=== PATIENT | female | born 1935 | race Caucasian/White ===

== ENCOUNTER → 2016-06-21 | Outpatient (CLI) | payer MEDICARE ==
--- NOTE | 2016-06-21 16:11 | US ---
EXAMINATION TYPE: US carotid duplex BILAT DATE OF EXAM: 06/21/2016 3:52 PM COMPARISON: NONE CLINICAL HISTORY: R42 Dizziness,I10 HTN. EXAM MEASUREMENTS: RIGHT: Peak Systolic Velocity (PSV) cm/sec ----- Right CCA: 68.9 ----- Right ICA: 77.8 ----- Right ECA: 53.8 ICA/CCA ratio: 1.1 RIGHT: End Diastole cm/sec ----- Right CCA: 16.1 ----- Right ICA: 18.4 ----- Right ECA: 0 LEFT: Peak Systolic Velocity (PSV) cm/sec ----- Left CCA: 69.3 ----- Left ICA: 104.9 ----- Left ECA: 51.7 ICA/CCA ratio: 1.5 LEFT: End Diastole cm/sec ----- Left CCA: 18.6 ----- Left ICA: 30.6 ----- Left ECA: 8.7 VERTEBRALS (direction of flow): Right Vertebral: Antegrade Left Vertebral: Antegrade TECHNOLOGIST IMPRESSION: mild atherosclerotic changes bilaterally; no significant hemodynamic steno sis IMPRESSION: I DO NOT SEE EVIDENCE OF A HEMODYNAMICALLY SIGNIFICANT STENOSIS IN EITHER CAROTID SYSTEM. Criteria for Assigning % of Stenosis / Diameter reduction (Estimation based on the indirect measurements of the internal carotid artery velocities (ICA PSV). 1. Normal (no stenosis)=ICA PSV < 125 cm/s: ratio < 2.0: ICA EDV<40 cm/s. 2. Less than 50% stenosis=ICA PSV < 125 cm/s: ratio < 2.0: ICA EDV<40 cm/s. 3. 50 to 69% stenosis=ICA PSV of 125 to 230 cm/s: ration 2.0 ? 4.0: ICA EDV 40-100 cm/s. 4. Greater than 70% stenosis to near occlusion= ICA PSV > 230 cm/s: ratio > 4.0: ICA EDV > 100 cm/s. 5. Near occlusion= ICA PSV velocities may be low or undetectable: variable ratio and ICA EDV. 6. Total occlusion=unable to detect flow.
--- NOTE | 2016-06-24 14:15 | ECHOF ---
Referral Reason:R42 Dizziness,I10 HTN MEASUREMENTS -------- HEIGHT: 152.4 cm WEIGHT: 55.8 kg BP: RVIDd: 2.5 cm (< 3.3) IVSd: 0.8 cm (0.6 - 1.1) LVIDd: 4.3 cm (3.9 - 5.3) LVPWd: 0.7 cm (0.6 - 1.1) IVSs: 1.0 cm LVIDs: 2.7 cm LVPWs: 1.0 cm LA Diam: 3.2 cm (2.7 - 3.8) LAESV Index (A-L): 28.96 ml/m Ao Diam: 2.8 cm (2.0 - 3.7) AV Cusp: 1.5 cm (1.5 - 2.6) LA Diam: 4.0 cm (2.7 - 3.8) MV EXCURSION: 15.488 mm (> 18.000) MV EF SLOPE: 50 mm/s (70 - 150) EPSS: 0.4 cm MV E Karel: 0.94 m/s MV DecT: 213 ms MV A Karel: 1.09 m/s MV E/A Ratio: 0.86 RAP: 5.00 mmHg RVSP: 40.65 mmHg FINDINGS -------- Sinus rhythm. This was a technically good study. LV size, wall thickness and systolic function are normal, with an EF greater than 55%. The right ventricle is normal in size. Normal LA size by volume 22+/-6 ml/m2. The right atrial size is normal. There is mild aortic valve sclerosis. There is no evidence of aortic regurgitation. Mild mitral annular calcification present. Mild mitral regurgitation is present. Mild tricuspid regurgitation present. There is no evidence of pulmonary hypertension. The right ventricular systolic pressure, as measured by Doppler, is 40.65mmHg. There is no pulmonic regurgitation present. The aortic root size is normal. There is no pericardial effusion. CONCLUSIONS -------- 1. LV size, wall thickness and systolic function are normal, with an EF greater than 55%. 2. Normal LA size by volume 22+/-6 ml/m2. 3. There is mild aortic valve sclerosis. 4. Mild mitral annular calcification present. 5. Mild mitral regurgitation is present. 6. Mild tricuspid regurgitation present. 7. There is no evidence of pulmonary hypertension. 8. The right ventricular systolic pressure, as measured by Doppler, is 40.65mmHg. MAIL DISTRIBUTION SCHEME EXAMINER: Lisset Collins RDCS
== END | disposition home or self-care (01) ==
LOC: RADECHMAIN 15:08
PROVIDERS: ATTEND Internal Medicine
DX: R42 Dizziness and giddiness (principal); I08.3 Combined rheumatic disorders of mitral, aortic and tricuspid valves
CPT/HCPCS: 93306; 93880

== ENCOUNTER → 2016-06-28 | Outpatient (CLI) | payer MEDICARE ==
--- NOTE | 2016-06-28 16:31 | BD ---
EXAMINATION TYPE: MG DEXA axial skeleton. DATE OF EXAM: 06/28/2016 1:44 PM COMPARISON: 03.08.2014 CLINICAL HISTORY: 81-year-old female M81.0 OSTEOPOROSIS Height: 59 Weight: 125 FRAX RISK QUESTIONS: Alcohol (3 or more units per day): NO Family History (Parent hip fracture): UNKNOWN Glucocorticoids (More than 3mos): NO (Ex: prednisone, prednisolone, methylprednisolone, dexamethasone, and hydrocortisone). History of Fracture in Adulthood: YES Secondary Osteoporosis: NO 1. Type 1 Diabetes: NO 2. Hyperthyroidism: NO 3. Menopause before 45: NO 4. Malnutrition: UNKNOWN 5. Chronic liver disease: NO Rheumatoid Arthritis: NO Current Tobacco Use: NO RISK FACTORS HISTORY OF: Hip Fracture : YES BOTH HIPS WITH SURGICAL REPAIR When: >50 YRS OLD Surgery to BOTH HIPS When: >50 YRS OLD Other Fractures since Age 52: RT ANKLE When: >50 YRS Family History of Osteoporosis: UNKNOWN Smoke tobacco: NO Drink Alcohol: SOCIAL Active: USES CANE, AND WALKER, CANNOT PARTICIPATE IN EXERCISE Diet low in dairy products/other sources of calcium: NO Postmenopausal woman: HYST AT AGE 50 Take estrogen and/or progesterone medications: IN THE PAST How long: FOR A FEW YRS Lost more than 2 inches in height since high school: YES Frequent falls: UNSTEADY Poor Health: FRAIL Adrenal Insufficiency: NO MEDICATIONS: Prednisone or other steroids: NO Osteoporosis Medications: DOSEN'T THINK SO Additional Medications: BP MEDS, CALCIUM AND VIT D, CHEMO IN THE PAST, TYLENOL, Additional History: RT SIDE BREAST CA, MASTECTOMY, OSTEOARTHRITIS, EXAM MEASUREMENTS: Bone mineral densitometry was performed using the [facility]. Bone mineral density as measured about the Lumbar spine is: ----- L1-L4(G/cm2): 0.925 T Score Values are as follows: ----- L1: -1.8 ----- L2: -2.5 ----- L3: -2.3 ----- L4: -1.9 ----- L1-L4: -2.1 Bone mineral density has: Increased 1.1% since study of: 03.08.2014 BOTH HIPS WITH HX OF FRACTURES AND SURGICAL REPAIR NO FRAX %'S, COULD NOT SCAN PTS HIPS, METAL AND SCREWS IN BOTH IMPRESSION: Osteopenia as indicated by T score values within the lumbar spine. Some of the measurements borderlin e on osteoporosis. There is slightly increased risk of fracture and the patient may be considered for treatment. Re-Screen in 2-5 years. NOTE: T-SCORE=SD OF THE YOUNG ADULT MEAN.
== END | disposition home or self-care (01) ==
LOC: RADBDWWP 13:14
PROVIDERS: ATTEND Internal Medicine Rheumatology
DX: M81.0 Age-related osteoporosis without current pathological fracture (principal); M85.80 Other specified disorders of bone density and structure, unspecified site
CPT/HCPCS: 77080

== ENCOUNTER → 2016-10-01 | Outpatient (CLI) | payer MEDICARE ==
--- NOTE | 2016-10-01 12:09 | XR ---
EXAMINATION TYPE: XR chest 2V DATE OF EXAM: 10/01/2016 10:35 AM COMPARISON: 01/18/2015 HISTORY: 81-year-old female with cough TECHNIQUE: Frontal and lateral views FINDINGS: Heart is normal size. Mild elongation of the thoracic aorta. Surgical clips project on the right. Mil d diffuse interstitial prominence largely unchanged. Strandy scar at the left base. No consolidation or pleural effusion. IMPRESSION: Chronic changes, possible chronic bronchitis/asthma. No acute change seen.
== END | disposition home or self-care (01) ==
LOC: RADXRMAIN 10:20
PROVIDERS: ATTEND Internal Medicine
DX: R05 Cough (principal)
CPT/HCPCS: 71020

== ENCOUNTER 2016-10-23 19:03 | Inpatient (IN) | payer MEDICARE ==
--- NOTE | 2016-10-23 19:37 | XR ---
EXAMINATION TYPE: XR knee complete LT DATE OF EXAM: 10/23/2016 7:28 PM COMPARISON: NONE HISTORY: Knee pain TECHNIQUE: 3 views FINDINGS: There is evidence of moderate sized knee joint effusion. There is spurring on the patella. There is osteopenia. There is on the lateral view suggestion of some depression of the medial tibial plateau. IMPRESSION: Possible fracture of the medial tibial plateau. Knee joint effusion. If there is persiste nt clinical indication a CT scan would be helpful.
--- NOTE | 2016-10-23 19:45 | ED ---
General Adult HPI - General Chief complaint: Extremity Injury, Lower Stated complaint: Fall/Knee pain Time Seen by Provider: 10/23/16 19:15 Source: patient, RN notes reviewed Mode of arrival: wheelchair Limitations: no limitations - History of Present Illness Initial comments: Patient is a 81-year-old female who presents emergency room today with chief complaint of a fall that occurred approximate hour ago. She does admit that her left knee gave out and she fell down. She is unsure exactly how she twisted it. She does admit to increased swelling and pain to the left knee has had a difficult time with any ambulation since. Patient denies any other injury or trauma. She states she did take Tylenol prior to arrival. She is declined any pain medicine at this time. Patient denies any recent fever, chills , shortness of breath, chest pain, back pain, abdominal pain, nausea or vomiting , numbness or tingling, dysuria or hematuria, constipation or diarrhea, headaches or visual changes, or any other complaints. - Related Data Home Medications Medication Instructions Recorded Confirmed Acetaminophen Tab [Tylenol] 1,000 mg PO Q6H PRN 11/08/13 04/12/15 Ferrous Sulfate [Feosol] 325 mg PO BID 11/08/13 04/12/15 Losartan [Cozaar] 50 mg PO DAILY 11/08/13 04/12/15 Metoprolol Tartrate [Lopressor] 50 mg PO DAILY 11/08/13 04/12/15 Omeprazole [PriLOSEC] 20 mg PO DAILY 11/08/13 04/12/15 Calcium Carbonate/Vitamin D3 2 tab PO DAILY 07/26/14 04/12/15 [Calcium 600-Vit D3 400 Tablet] Hydroxychloroquine Sulfate 200 mg PO BID 01/18/15 04/12/15 [Plaquenil] Latanoprost Ophth [Xalatan 0.005%] 1 drop BOTH EYES HS 01/18/15 04/12/15 NIFEdipine [Procardia XL] 30 mg PO DAILY 01/18/15 04/12/15 Cyclobenzaprine [Flexeril] 5 mg PO DAILY PRN 04/12/15 04/12/15 Previous Rx's Medication Instructions Recorded HYDROcodone/APAP 5-325MG [Smoot 1 each PO Q4HR PRN #60 tab 01/22/15 5-325] Allergies Allergy/AdvReac Type Severity Reaction Status Date / Time codeine Allergy Nausea & Verified 10/23/16 19:10 Vomiting Review of Systems ROS Statement: Those systems with pertinent positive or pertinent negative responses have been documented in the HPI. ROS Other: All systems not noted in ROS Statement are negative. Past Medical History Past Medical History: Cancer, GERD/Reflux, Hypertension, Pneumonia Additional Past Medical History / Comment(s): glaucoma,heart murmur,polyps, iron deficient anemia, breast cancer 2012 History of Any Multi-Drug Resistant Organisms: None Reported Past Surgical History: Breast Surgery, Hysterectomy Additional Past Surgical History / Comment(s): cataracts, rt masectomy, left hip surgery. Past Anesthesia/Blood Transfusion Reactions: No Reported Reaction Additional Past Anesthesia/Blood Transfusion Reaction / Comment(s): 08-31-2013 Past Psychological History: No Psychological Hx Reported Smoking Status: Former smoker Past Alcohol Use History: None Reported Past Drug Use History: None Reported Additional Drug Use History / Comment(s): Currently lives at home alone. Her is in rehab at this time. General Exam - General Exam Comments Initial Comments: General: The patient is awake and alert, in no distress, and does not appear acutely ill. Eye: Pupils are equal, round and reactive to light, extra-ocular movements are intact. No nystagmus. There is normal conjunctiva bilaterally. No signs of icterus. Ears, nose, mouth and throat: There are moist mucous membranes and no oral lesions. Neck: The neck is supple, there is no tenderness or JVD. Cardiovascular: There is a regular rate and rhythm. No murmur, rub or gallop is appreciated. Respiratory: Lungs are clear to auscultation, respirations are non-labored, breath sounds are equal. No wheezes, stridor, rales, or rhonchi. Musculoskeletal: does have some moderate swelling to the left knee. She does show good range of motion both flexion and extension. She does have tenderness over the anterior aspect of the left knee. Mild tenderness popliteal. Strength 4/5 due to pain. No bony tenderness to the left hip or down into the left ankle. Strength 5/5. Sensation intact. Pulses equal bilaterally 2+. Neurological: A&O x 3. CN II-XII intact, There are no obvious motor or sensory deficits. Coordination appears grossly intact. Speech is normal. Skin: Skin is warm and dry and no rashes or lesions are noted. Psychiatric: Cooperative, appropriate mood & affect, normal judgment. Limitations: no limitations Course Vital Signs 10/23/16 19:08 Temperature 97.9 F Pulse Rate 76 Respiratory 20 Rate Blood Pressure 156/67 O2 Sat by Pulse 95 Oximetry - Reevaluation(s) Reevaluation #1: 10/23/16 19:40 patient's x-ray reviewed and does show possible tibial plateau fracture. CT of the left knee will be obtained for further information. Again patient asked if she needed pain medication at this time she again has declined states she did take Tylenol prior to arrival. Medical Decision Making - Medical Decision Making Patient's CT reviewed and does show tibial plateau fracture. Results were discussed with orthopedic Dr. Garcia who will admit the patient. Disposition Clinical Impression: Tibial plateau fracture, left Disposition: ADMITTED IP TO THIS HOSP Condition: Stable Referrals: Jace Stafford MD [Primary Care Provider] - 1-2 days Time of Disposition: 20:40
--- NOTE | 2016-10-23 20:07 | CT ---
EXAMINATION TYPE: CT knee LT wo con DATE OF EXAM: 10/23/2016 7:58 PM COMPARISON: NONE HISTORY: Fall today, left knee injury. CT DLP: 429.50 mGycm Automated exposure control for dose reduction was used. FINDINGS: There is a 1.5 x 1.5 cm fracture of the central portion of the medial tibial plateau. There is depres britni of the fragment 5 mm. There is knee joint effusion. There is osteopenia. The distal femur is int act. Proximal fibula is intact. IMPRESSION: KNEE JOINT EFFUSION. MILDLY DEPRESSED INTRA-ARTICULAR FRACTURE OF THE MEDIAL TIBIAL PLATEAU.
[2016-10-23] MEDS ORDERED: SODIUM CHLORIDE 0.9% 1,000 ML IV STA (20:44)
[2016-10-23] MEDS ORDERED: SODIUM CHLORIDE 0.9% 1,000 ML IV ONE (20:51)
[2016-10-23] MEDS ORDERED: ACETAMINOPHEN TAB 325 MG TAB PO PRN (20:51)
[2016-10-23] MEDS ORDERED: ONDANSETRON 4 MG/2 ML VIAL IVP PRN (20:51)
[2016-10-23] MEDS ORDERED: NALOXONE 0.4 MG/ML 1 ML VIAL IV PRN (20:51)
[2016-10-23] MEDS ORDERED: MORPHINE SULFATE 4 MG/ML SYRINGE IV PRN (20:51)
[2016-10-23 21:44] LABS: Basophils % (A) 0 %; CH 29.4; CHCM 33.1; Eosinophils # (A) 0.1 k/uL (0-0.7); Eosinophils % (A) 1 %; HCT 33.5 % (34.0-46.0); HDW 2.25; HGB 11.1 gm/dL (11.4-16.0); Luc % (Auto) 1; Lymphocytes # (A) 0.9 k/uL (1.0-4.8); Lymphocytes % (A) 12 %; MCH 29.7 pg (25.0-35.0); MCHC 33.2 g/dL (31.0-37.0); MCV 89.3 fL (80.0-100.0); Mean Platelet Volume 7.7; Monocytes # (A) 0.3 k/uL (0-1.0); Monocytes % (A) 4 %; Neutrophils # (A) 6.6 k/uL (1.3-7.7); Neutrophils % (A) 82 %; RBC 3.74 m/uL (3.80-5.40); RDW 13.4 % (11.5-15.5); WBC 8.1 k/uL (3.8-10.6); WBC (Perox) 8.35
[2016-10-23 21:55] LABS: ALT 24 U/L (9-52); AST 27 U/L (14-36); Alkaline Phosphatase 111 U/L (38-126); Anion Gap 12 mmol/L; Blood Urea Nitrogen 18 mg/dL (7-17); Calcium 9.6 mg/dL (8.4-10.2); Carbon Dioxide 22 mmol/L (22-30); Chloride 104 mmol/L (98-107); Glucose 104 mg/dL (74-99); Non-African American GFR(MDRD) 55 (>60 ml/min/1.73 sqM); Potassium 3.9 mmol/L (3.5-5.1); Sodium 138 mmol/L (137-145); Total Bilirubin 0.5 mg/dL (0.2-1.3); Total Protein 7.5 g/dL (6.3-8.2)
[2016-10-23 21:58] LABS: Partial Thromboplastin Time 24.9 sec (22.0-30.0); Prothrombin Time 10.5 sec (9.0-12.0)
[2016-10-24] MEDS: HYDROcodone/APAP 5-325MG 1 EACH TAB PO PRN ×3 (08:59→21:36)
--- NOTE | 2016-10-24 09:26 | P.HPOR ---
History of Present Illness H&P Date: 10/24/16 Chief Complaint: Left tibial plateau fracture This is a 81-year-old female admitted to [facility] on 2016 after falling and sustaining injury to her left knee. She states that she' s been having left knee pain for the past several days. When she got up yesterday the knee gave out on her causing her to fall. She was admitted to [facility] for pain management and further evaluation of the left knee. Past Medical History Past Medical History: Cancer, GERD/Reflux, Hypertension, Pneumonia Additional Past Medical History / Comment(s): osteoporosis; glaucoma,heart murmur,polyps, iron deficient anemia, breast cancer 2012 History of Any Multi-Drug Resistant Organisms: None Reported Past Surgical History: Breast Surgery, Hysterectomy Additional Past Surgical History / Comment(s): cataracts, rt masectomy, left hip surgery, right hip surgery Past Anesthesia/Blood Transfusion Reactions: No Reported Reaction Additional Past Anesthesia/Blood Transfusion Reaction / Comment(s): 08-31-2013 Past Psychological History: No Psychological Hx Reported Smoking Status: Former smoker Past Alcohol Use History: None Reported Past Drug Use History: None Reported Additional Drug Use History / Comment(s): Currently lives at home alone. Her is in rehab at this time. - Past Family History Father Family Medical History: Myocardial Infarction ([place]) Mother Family Medical History: Blood Disorder, Cancer Additional Family Medical History / Comment(s): of leukemia at 50 Medications and Allergies Home Medications Medication Instructions Recorded Confirmed Type Acetaminophen Tab [Tylenol] 1,000 mg PO Q6H PRN 11/08/13 10/23/16 History Ferrous Sulfate [Feosol] 325 mg PO DAILY 11/08/13 10/23/16 History Losartan [Cozaar] 50 mg PO DAILY 11/08/13 10/23/16 History Metoprolol Tartrate [Lopressor] 50 mg PO DAILY 11/08/13 10/23/16 History Omeprazole [PriLOSEC] 20 mg PO DAILY 11/08/13 10/23/16 History Hydroxychloroquine Sulfate 200 mg PO BID 01/18/15 10/23/16 History [Plaquenil] Latanoprost Ophth [Xalatan 0.005%] 1 drop BOTH EYES HS 01/18/15 10/23/16 History NIFEdipine [Procardia XL] 30 mg PO DAILY 01/18/15 10/23/16 History Ergocalciferol [Vitamin D2] 50,000 unit PO PRIDE 10/23/16 10/23/16 History Allergies Allergy/AdvReac Type Severity Reaction Status Date / Time codeine Allergy Nausea & Verified 10/23/16 22:30 Vomiting Physical Examination This is a pleasant 81-year-old female in no acute distress. She is alert and oriented 3. Exam of the head neck reveal no deformities. She has full cervical spine motion without difficulty or pain. There is no pain to palpation about cervical spine or paraspinal musculature. Exam the upper extremities reveals no obvious deformities. There is mild pain about the left wrist with palpation. There is no obvious swelling noted. She has full shoulder, elbow, wrist and finger motion without difficulty or pain. Neurovascular status the upper extremities is intact. Exam the lower extremities reveals mild swelling to the left knee. He is no erythema or ecchymosis. There is pain with palpation about the medial and lateral joint line. She has full foot and ankle motion without difficulty or pain. Neurovascular status to the lower extremities intact. Results X-rays and computed tomography scan of the left knee reveal a medial tibial plateau fracture with mild depression and minimal displacement. No other fractures identified. - Labs Labs: Abnormal Lab Results - Last 24 Hours (Table) 10/23/16 10/23/16 Range/Units 21:32 21:32 RBC 3.74 L (3.80-5.40) m/uL Hgb 11.1 L (11.4-16.0) gm/dL Hct 33.5 L (34.0-46.0) % Plt Count 143 L (150-450) k/uL Lymphocytes # 0.9 L (1.0-4.8) k/uL BUN 18 H (7-17) mg/dL Glucose 104 H (74-99) mg/dL H & H 10/23/16 Range/Units 21:32 Hgb 11.1 L (11.4-16.0) gm/dL Hct 33.5 L (34.0-46.0) % Coagulation 10/23/16 Range/Units 21:32 INR 1.0 (<1.1) Result Diagrams: 10/23/16 21:32 10/23/16 21:32 Assessment and Plan (1) Tibial plateau fracture, left Status: Acute (2) Fall Status: Acute Plan: The clinical and x-ray findings are discussed the patient. It is recommended that her fracture be treated nonoperatively. She will remain in the knee immobilizer. She is nonweightbearing to the left lower extremity with walker. We will see how she does with physical therapy and make rehab recommendations at that time.
[2016-10-24] MEDS: HYDROXYCHLOROQUINE SULFATE 200 MG TAB PO SCH ×2 (10:57→20:09)
[2016-10-24] MEDS: LOSARTAN 50 MG TAB PO SCH (10:57)
[2016-10-24] MEDS: PANTOPRAZOLE 40 MG TABLET PO SCH (10:57)
[2016-10-24] MEDS: NIFEdipine XL 30 MG TAB.ER.24 PO SCH (10:57)
[2016-10-24] MEDS: METOPROLOL TARTRATE 50 MG TAB PO SCH (10:57)
[2016-10-24] MEDS: FERROUS SULFATE 325 MG TAB PO SCH (10:58)
--- NOTE | 2016-10-24 15:08 | P.CONS ---
History of Present Illness - Reason for Consult Consult date: 10/24/16 Medical management Requesting physician: Colt Garcia - Chief Complaint Left tibial plateau fracture - History of Present Illness This is a 81-year-old female with a known past medical history of hypertension, breast cancer, iron deficiency anemia and Raynauds. She presents to the emergency room after a fall and pain in the left knee. Patient reports that she felt the left knee twist and she was having difficulty ambulating sets. She was brought into the emergency room for further evaluation. And she had a computed tomography scan of the knee revealing a left knee joint effusion. Mildly depressed intra-articular fracture of the medial tibial plateau. Patient denies any chest pain, shortness of breath, nausea or vomiting. Denies any bowel movement changes or urinary symptoms. Denies any fever chills or sweats. We were consulted for medical management. Review of Systems Please refer to HPI otherwise unremarkable Past Medical History Past Medical History: Cancer, GERD/Reflux, Hypertension, Pneumonia Additional Past Medical History / Comment(s): osteoporosis; glaucoma,heart murmur,polyps, iron deficient anemia, breast cancer 2012 History of Any Multi-Drug Resistant Organisms: None Reported Past Surgical History: Breast Surgery, Hysterectomy Additional Past Surgical History / Comment(s): cataracts, rt masectomy, left hip surgery, right hip surgery Past Anesthesia/Blood Transfusion Reactions: No Reported Reaction Additional Past Anesthesia/Blood Transfusion Reaction / Comm: 08-31-2013 Past Psychological History: No Psychological Hx Reported Smoking Status: Former smoker Past Alcohol Use History: None Reported Past Drug Use History: None Reported Additional Drug Use History / Comment(s): Currently lives at home alone. Her is in rehab at this time. - Past Family History Father Family Medical History: Myocardial Infarction ([place]) Mother Family Medical History: Blood Disorder, Cancer Additional Family Medical History / Comment(s): of leukemia at 50 Medications and Allergies Home Medications Medication Instructions Recorded Confirmed Type Acetaminophen Tab [Tylenol] 1,000 mg PO Q6H PRN 11/08/13 10/23/16 History Ferrous Sulfate [Feosol] 325 mg PO DAILY 11/08/13 10/23/16 History Losartan [Cozaar] 50 mg PO DAILY 11/08/13 10/23/16 History Metoprolol Tartrate [Lopressor] 50 mg PO DAILY 11/08/13 10/23/16 History Omeprazole [PriLOSEC] 20 mg PO DAILY 11/08/13 10/23/16 History Hydroxychloroquine Sulfate 200 mg PO BID 01/18/15 10/23/16 History [Plaquenil] Latanoprost Ophth [Xalatan 0.005%] 1 drop BOTH EYES HS 01/18/15 10/23/16 History NIFEdipine [Procardia XL] 30 mg PO DAILY 01/18/15 10/23/16 History Ergocalciferol [Vitamin D2] 50,000 unit PO PRIDE 10/23/16 10/23/16 History Allergies Allergy/AdvReac Type Severity Reaction Status Date / Time codeine Allergy Nausea & Verified 10/23/16 22:30 Vomiting Physical Exam Vitals: Vital Signs Temp Pulse Pulse Resp BP BP Pulse Ox 10/24/16 08:00 86 16 10/24/16 07:00 98.6 F 86 16 141/66 96 10/23/16 23:15 86 18 120/62 96 10/23/16 19:08 97.9 F 76 20 156/67 95 Intake and Output 10/24/16 10/24/16 10/24/16 06:59 14:59 22:59 Intake Total 100 Output Total 900 Balance -800 Intake: Amount of Fluid Infused ( 100 ml) Oral 0 Output: Urine 900 Other: Voiding Method Bedpan Bedpan # Voids 1 1 # Bowel Movements 0 Head normocephalic Neck supple Lungs clear to auscultation bilaterally no wheezing or crackles Heart regular rate and rhythm S1-S2, no rub or gallop Abdomen is soft nontender nondistended positive bowel sounds no hepatosplenomegaly Extremities no edema. Left leg in brace Neuro alert and orientated to 3 Results CBC & Chem 7: 10/23/16 21:32 10/23/16 21:32 Labs: Abnormal Lab Results - Last 24 Hours (Table) 10/23/16 10/23/16 Range/Units 21:32 21:32 RBC 3.74 L (3.80-5.40) m/uL Hgb 11.1 L (11.4-16.0) gm/dL Hct 33.5 L (34.0-46.0) % Plt Count 143 L (150-450) k/uL Lymphocytes # 0.9 L (1.0-4.8) k/uL BUN 18 H (7-17) mg/dL Glucose 104 H (74-99) mg/dL Assessment and Plan Plan: 1. Fall with left tibial plateau fracture: Admitted to orthopedic service. No surgical intervention at this time. The recommending leg brace and physical therapy. Continue with current pain management. Social work consulted for ECF placement 2. Essential hypertension: resume the losartan, metoprolol and Procardia 3. Iron deficiency anemia: Resume ferrous sulfate 4. GERD: Resume Protonix 5. History of breast cancer status post mastectomy and chemotherapy in 2012 6. Reynaud syndrome: continue plaquenil GI prophylaxis Protonix and DVT prophylaxis subcu heparin Thank you for this consultation. We will continue to follow along with you. Time with Patient: Greater than 30 (Greater than 50% of the total time spent in counseling and coordination of care. I performed an examination of the patient and discussed their management with the physician Sling Operator. I have reviewed the Physician Sling Operator's notes and agree with the documented findings and plan of care)
[2016-10-24] MEDS: HEPARIN SODIUM,PORCINE 5,000 UNIT/ML 1 ML VIAL SQ SCH (20:09)
[2016-10-24] MEDS ORDERED: LATANOPROST 0.005% OPHTH DROPS 2.5 ML BTL BOTH EYES SCH (21:00)
[2016-10-25 07:47] VITALS: RESP 16
--- NOTE | 2016-10-25 08:22 | P.PN ---
Subjective Principal diagnosis: Left tibial plateau fracture The patient is a pleasant 81-year-old female who was admitted to the hospital after falling and sustaining an injury to her left knee. She was found to have a minimally displaced and depressed tibial plateau fracture. She was seen and evaluated yesterday and was placed in a knee immobilizer and instructed on nonweightbearing. She was up with physical therapy yesterday and sat in the chair. We are awaiting rehab placement. She has no new complaints this morning. Objective - Vital Signs Vital signs: Vital Signs Temp 98.2 F 10/25/16 07:00 Pulse 94 10/25/16 07:00 Resp 16 10/25/16 07:00 BP 121/56 10/25/16 07:00 Pulse Ox 96 10/25/16 07:00 Intake & Output 10/24/16 10/25/16 10/25/16 18:59 06:59 18:59 Other: Voiding Method Bedpan # Voids 1 1 # Bowel Movements 1 - Exam The patient is in no acute distress. She is alert and oriented 3. Exam of the left lower extremity reveals mild swelling to the knee. Pain upon palpation to the medial joint line. She has full foot and ankle motion. Calf is mildly tender without redness or swelling noted. Neurological and circulatory status is intact. - Labs CBC & Chem 7: 10/23/16 21:32 10/23/16 21:32 Assessment and Plan (1) Fall Status: Acute (2) Tibial plateau fracture, left Status: Acute Plan: The clinical findings were discussed with the patient. She will continue physical therapy. Continue pain control. Continue knee immobilizer and nonweightbearing to the left lower extremity. The patient may be discharged to skilled rehab when medically stable and bed is available. The patient will follow-up with Dr. Garcia on an outpatient basis.
[2016-10-25 08:27] LABS: Basophils % (A) 1 %; CH 29.3; CHCM 32.8; Eosinophils # (A) 0.2 k/uL (0-0.7); Eosinophils % (A) 4 %; HCT 31.8 % (34.0-46.0); HDW 2.19; HGB 10.7 gm/dL (11.4-16.0); Luc % (Auto) 2; Lymphocytes # (A) 1.2 k/uL (1.0-4.8); Lymphocytes % (A) 21 %; MCH 30.1 pg (25.0-35.0); MCHC 33.5 g/dL (31.0-37.0); MCV 89.6 fL (80.0-100.0); Mean Platelet Volume 8.1; Monocytes # (A) 0.3 k/uL (0-1.0); Monocytes % (A) 6 %; Neutrophils # (A) 3.7 k/uL (1.3-7.7); Neutrophils % (A) 67 %; RBC 3.54 m/uL (3.80-5.40); RDW 13.3 % (11.5-15.5); WBC 5.5 k/uL (3.8-10.6); WBC (Perox) 6.07
[2016-10-25] MEDS: HYDROcodone/APAP 5-325MG 1 EACH TAB PO PRN ×2 (08:28→15:43)
[2016-10-25] MEDS: PANTOPRAZOLE 40 MG TABLET PO SCH (08:29)
[2016-10-25] MEDS: METOPROLOL TARTRATE 50 MG TAB PO SCH (08:29)
[2016-10-25] MEDS: LOSARTAN 50 MG TAB PO SCH (08:29)
[2016-10-25] MEDS: FERROUS SULFATE 325 MG TAB PO SCH (08:29)
[2016-10-25] MEDS: HEPARIN SODIUM,PORCINE 5,000 UNIT/ML 1 ML VIAL SQ SCH (08:29)
[2016-10-25] MEDS: HYDROXYCHLOROQUINE SULFATE 200 MG TAB PO SCH (08:29)
[2016-10-25] MEDS: NIFEdipine XL 30 MG TAB.ER.24 PO SCH (08:29)
[2016-10-25 08:36] LABS: ALT 20 U/L (9-52); AST 23 U/L (14-36); Alkaline Phosphatase 93 U/L (38-126); Anion Gap 14 mmol/L; Blood Urea Nitrogen 17 mg/dL (7-17); Calcium 9.2 mg/dL (8.4-10.2); Carbon Dioxide 18 mmol/L (22-30); Chloride 105 mmol/L (98-107); Glucose 78 mg/dL (74-99); Non-African American GFR(MDRD) 57 (>60 ml/min/1.73 sqM); Sodium 137 mmol/L (137-145); Total Bilirubin 0.8 mg/dL (0.2-1.3); Total Protein 6.7 g/dL (6.3-8.2)
--- NOTE | 2016-10-25 12:33 | P.PN ---
Subjective Patient presented after a fall with evidence of a left medial tibial plateau fracture. Evaluated by orthopedics the recommending a knee immobilizer brace. She is nonweightbearing. She is awaiting ECF placement. Patient's pain is controlled. She denies any chest pain shortness of breath. Last bowel movement 2 days ago. Denies a nausea vomiting. Denies any burning with urination. Objective - Vital Signs Vital signs: Vital Signs Temp 98.2 F 10/25/16 07:00 Pulse 94 10/25/16 08:00 Resp 16 10/25/16 08:00 BP 121/56 10/25/16 07:00 Pulse Ox 96 10/25/16 07:00 Intake & Output 10/24/16 10/25/16 10/25/16 18:59 06:59 18:59 Other: Voiding Method Bedpan Bedpan # Voids 1 1 1 # Bowel Movements 1 - Exam Head normocephalic Neck supple Lungs clear to auscultation bilaterally no wheezing or crackles Heart regular rate and rhythm S1-S2, no rub or gallop Abdomen is soft nontender nondistended positive bowel sounds no hepatosplenomegaly Extremities no edema. Left leg and knee immobilizer Neuro alert and orientated to 3 - Labs CBC & Chem 7: 10/25/16 07:19 10/25/16 07:19 Labs: Abnormal Lab Results - Last 24 Hours (Table) 10/25/16 10/25/16 Range/Units 07:19 07:19 RBC 3.54 L (3.80-5.40) m/uL Hgb 10.7 L (11.4-16.0) gm/dL Hct 31.8 L (34.0-46.0) % Plt Count 135 L (150-450) k/uL Carbon Dioxide 18 L (22-30) mmol/L Assessment and Plan Plan: 1. Fall with left tibial plateau fracture: Admitted to orthopedic service. No surgical intervention at this time. The recommending leg brace and physical therapy. Continue with current pain management. Social work consulted for ECF placement 2. Essential hypertension: resume the losartan, metoprolol and Procardia 3. Iron deficiency anemia: Resume ferrous sulfate 4. GERD: Resume Protonix 5. History of breast cancer status post mastectomy and chemotherapy in 2012 6. Reynaud syndrome: continue plaquenil GI prophylaxis Protonix and DVT prophylaxis subcu heparin Patient is medically stable to be transferred to ECF when bed available. Med rec will be completed. I performed an examination of the patient and discussed their management with the physician Cook Pickled Meat. I have reviewed the Physician Cook Pickled Meat's notes and agree with the documented findings and plan of care
--- NOTE | 2016-10-25 14:04 | P.DS ---
Providers Date of admission: 10/23/16 21:40 Expected date of discharge: 10/25/16 Attending physician: Colt Garcia Consults: 10/23/16 20:51 Consult Physician Stat Consulting Provider: Jace Stafford Consult Reason/Comments: medical clearance Do you want consulting provider notified?: Yes Primary care physician: Jace Stafford - Discharge Diagnosis(es) (1) Fall Current Visit: No Status: Acute (2) Tibial plateau fracture, left Current Visit: Yes Status: Acute Hospital Course: The patient is a pleasant 81-year-old female who who was admitted to [facility] after falling and sustaining an injury to her left knee. She was found to have a minimally displaced and discussed tibial plateau fracture. No surgical intervention was planned and she was placed in a knee immobilizer and nstructed on weightbearing. She was up with physical therapy yesterday and sat in the chair. She has no new complaints on the day of discharge. On exam she is in no acute distress. She is alert and oriented 3. Exam of the left lower extremity reveals mild swelling to the knee. Pain upon palpation to the medial joint line. She has full foot and ankle motion. Calf is mildly tender without redness or swelling noted. Neurological and circulatory status is intact. The patient is orthopedically stable for discharge to skilled rehab today. See medication reconciliation for accurate list of discharge medications. Pertinent Studies: Laboratory Tests 10/25/16 07:19 WBC 5.5 RBC 3.54 L Hgb 10.7 L Hct 31.8 L Patient Condition at Discharge: Stable Plan - Discharge Summary New Discharge Prescriptions: HYDROcodone/APAP 5-325MG [Sarver 5] 1 - 2 each PO Q4-6H PRN #60 tab PRN Reason: Pain Discharge Medication List Acetaminophen Tab [Tylenol] 1,000 mg PO Q6H PRN 11/08/13 [History] Ferrous Sulfate [Feosol] 325 mg PO DAILY 11/08/13 [History] Losartan [Cozaar] 50 mg PO DAILY 11/08/13 [History] Metoprolol Tartrate [Lopressor] 50 mg PO DAILY 11/08/13 [History] Omeprazole [PriLOSEC] 20 mg PO DAILY 11/08/13 [History] Hydroxychloroquine Sulfate [Plaquenil] 200 mg PO BID 01/18/15 [History] Latanoprost Ophth [Xalatan 0.005%] 1 drop BOTH EYES HS 01/18/15 [History] NIFEdipine [Procardia XL] 30 mg PO DAILY 01/18/15 [History] Ergocalciferol [Vitamin D2 (DRISDOL)] 50,000 unit PO PRIDE 10/23/16 [History] HYDROcodone/APAP 5-325MG [Sarver 5] 1 - 2 each PO Q4-6H PRN #60 tab 10/25/16 [Rx] Follow up Appointment(s)/Referral(s): Jace Stafford MD [Primary Care Provider] - 1-2 days Colt Garcia MD [STAFF PHYSICIAN] - 2 Weeks Activity/Diet/Wound Care/Special Instructions: Non-weightbearing left leg Keep immobilizer in place Follow up with Dr. Garcia in 2 weeks. Call [facility] with any questions or concerns, . Discharge Disposition: TRANSFER TO SNF/ECF
[2016-10-25 15:03] VITALS: BP 141/76; PULSE 70; TEMP 98.7
== END 2016-10-25 16:17 | DRG 563 ==
LOC: EC 19:03 → 4MS4W 21:40
PROVIDERS: ADMIT Orthopaedic Surgery; ATTEND Orthopaedic Surgery
DX: S82.142A Displaced bicondylar fracture of left tibia, initial encounter for closed fracture (principal); I10 Essential (primary) hypertension; H40.9 Unspecified glaucoma; I73.00 Raynaud's syndrome without gangrene; K21.9 Gastro-esophageal reflux disease without esophagitis; M81.0 Age-related osteoporosis without current pathological fracture; Z79.899 Other long term (current) drug therapy; Z80.6 Family history of leukemia; Z82.49 Family history of ischemic heart disease and other diseases of the circulatory system; Z85.3 Personal history of malignant neoplasm of breast; Z87.891 Personal history of nicotine dependence
CPT/HCPCS: 36415; 80053; 85025; 85610; 85730; 93005

== ENCOUNTER 2018-05-29 11:49 | Emergency (ER) | payer MEDICARE ==
[2018-05-29] MEDS ORDERED: CYCLOBENZAPRINE 5 MG TAB PO STA (12:34)
--- NOTE | 2018-05-29 13:38 | ED ---
Back Pain HPI - General Chief Complaint: Back Pain/Injury Stated Complaint: Back pain Time Seen by Provider: 05/29/18 12:18 Source: patient Limitations: no limitations - History of Present Illness Initial Comments: 83-year-old female patient presents to the emergency department today for evaluation of low back pain with radiation down the left leg. Patient states that she woke up one morning a week ago with the pain. Patient states that the pain is across her entire low back. States the pain radiates down the left lateral leg down to her foot. States that the pain is sharp and shooting. States that her left leg does feel numb. She denies any loss of bowel or bladder control or saddle anesthesia. Denies any fevers or chills. Patient states she does have a history of osteoporosis. She has had bilateral hip fractures. She denies any recent injury or fall. Patient denies any recent rash , shortness breath, chest pain, abdominal pain, nausea, vomiting, diarrhea, constipation, dizziness, weakness, hematuria, dysuria, urinary urgency, urinary frequency, headache, visual changes, or any other complaints. MD Complaint: back pain - Related Data Home Medications Medication Instructions Recorded Confirmed Ferrous Sulfate [Feosol] 325 mg PO DAILY 11/08/13 05/29/18 Losartan [Cozaar] 50 mg PO DAILY 11/08/13 05/29/18 Omeprazole [PriLOSEC] 20 mg PO BID 11/08/13 05/29/18 Hydroxychloroquine Sulfate 200 mg PO BID 01/18/15 05/29/18 [Plaquenil] Latanoprost Ophth [Xalatan 0.005%] 1 drop BOTH EYES HS 01/18/15 05/29/18 NIFEdipine [Procardia XL] 30 mg PO DAILY 01/18/15 05/29/18 Ergocalciferol [Vitamin D2 50,000 unit PO PRIDE 10/23/16 05/29/18 (DRISDOL)] Calcium Carbonate/Vitamin D3 1 tab PO DAILY 05/29/18 05/29/18 [Calcium 500-Vit D3 200 Tablet] Metoprolol Succinate (ER) [Toprol 50 mg PO DAILY 05/29/18 05/29/18 Xl] Teriparatide [Forteo] 20 mcg SQ DAILY 05/29/18 05/29/18 predniSONE 10 mg PO DAILY 05/29/18 05/29/18 Allergies Allergy/AdvReac Type Severity Reaction Status Date / Time codeine Allergy Nausea & Verified 05/29/18 12:29 Vomiting Review of Systems ROS Statement: Those systems with pertinent positive or pertinent negative responses have been documented in the HPI. ROS Other: All systems not noted in ROS Statement are negative. Past Medical History Past Medical History: Cancer, GERD/Reflux, Hypertension, Pneumonia Additional Past Medical History / Comment(s): osteoporosis; glaucoma,heart murmur,polyps, iron deficient anemia, breast cancer 2012 History of Any Multi-Drug Resistant Organisms: None Reported Past Surgical History: Breast Surgery, Hysterectomy Additional Past Surgical History / Comment(s): cataracts, rt masectomy, left hip surgery, right hip surgery Past Anesthesia/Blood Transfusion Reactions: No Reported Reaction Additional Past Anesthesia/Blood Transfusion Reaction / Comment(s): 08-31-2013 Past Psychological History: No Psychological Hx Reported Smoking Status: Former smoker Past Alcohol Use History: Rare Past Drug Use History: None Reported - Past Family History Father Family Medical History: Myocardial Infarction ([place]) Mother Family Medical History: Blood Disorder, Cancer Additional Family Medical History / Comment(s): of leukemia at 50 General Exam Limitations: no limitations General appearance: alert, in no apparent distress, other (This is a well- developed, well-nourished elderly female patient in no acute distress. Vital signs upon presentation are temperature 97.6F, pulse 88, respirations 20, blood pressure 133/65, pulse ox 97% on room air.) Eye exam: Present: normal appearance, PERRL, EOMI. Absent: scleral icterus, conjunctival injection, periorbital swelling ENT exam: Present: normal exam, mucous membranes moist Neck exam: Present: normal inspection. Absent: tenderness, meningismus, lymphadenopathy Respiratory exam: Present: normal lung sounds bilaterally. Absent: respiratory distress, wheezes, rales, rhonchi, stridor Cardiovascular Exam: Present: regular rate, normal rhythm, normal heart sounds. Absent: systolic murmur, diastolic murmur, rubs, gallop, clicks GI/Abdominal exam: Present: soft, normal bowel sounds. Absent: distended, tenderness, guarding, rebound, rigid Back exam: Present: normal inspection, tenderness (Bilateral lower back tenderness). Absent: vertebral tenderness Neurological exam: Present: alert, oriented X3, CN II-XII intact Psychiatric exam: Present: normal affect, normal mood Skin exam: Present: warm, dry, intact, normal color. Absent: rash Course Vital Signs 05/29/18 05/29/18 11:53 15:27 Temperature 97.6 F 98.0 F Pulse Rate 88 80 Respiratory 20 16 Rate Blood Pressure 133/65 138/71 O2 Sat by Pulse 97 98 Oximetry Medical Decision Making - Medical Decision Making 83-year-old female patient with past medical history significant for breast cancer in remission presents to the emergency department today for evaluation of nontraumatic low back pain with radicular type pain down the left leg. Physical examination did reveal some weakness to the left leg, tenderness over the left and right lower back. Patient good sensation and good distal pulses to the extremities. CT was obtained and did reveal a pathologic fracture at L5 vertebrae with bony destruction and multiple soft tissue masses involving the paraspinal space around 6 vertebra, masses extending into the left sacroiliac joint as well. I did discuss findings and results with the patient and her family. We currently have no coverage for spine or for neurosurgery. Given her symptoms and possibility of nerve root compression and involvement we will transfer to [facility] for further evaluation by neurosurgery and oncology. Patient's family are agreeable with this plan. - Lab Data Result diagrams: 05/29/18 15:51 Lab Results 05/29/18 05/29/18 Range/Units 13:58 15:51 WBC 9.9 (3.8-10.6) k/uL RBC 3.91 (3.80-5.40) m/uL Hgb 11.7 (11.4-16.0) gm/dL Hct 35.6 (34.0-46.0) % MCV 91.0 (80.0-100.0) fL MCH 29.9 (25.0-35.0) pg MCHC 32.8 (31.0-37.0) g/dL RDW 13.9 (11.5-15.5) % Plt Count 183 (150-450) k/uL Neutrophils % 91 % Lymphocytes % 6 % Monocytes % 1 % Eosinophils % 2 % Basophils % 0 % Neutrophils # 9.0 H (1.3-7.7) k/uL Lymphocytes # 0.6 L (1.0-4.8) k/uL Monocytes # 0.1 (0-1.0) k/uL Eosinophils # 0.2 (0-0.7) k/uL Basophils # 0.0 (0-0.2) k/uL Urine Color Light Yellow Urine Appearance Clear (Clear) Urine pH 5.5 (5.0-8.0) Ur Specific [place] 1.007 (1.001-1.035) Urine Protein Negative (Negative) Urine Glucose (UA) Negative (Negative) Urine Ketones Negative (Negative) Urine Blood Trace H (Negative) Urine Nitrite Negative (Negative) Urine Bilirubin Negative (Negative) Urine Urobilinogen <2.0 (<2.0) mg/dL Ur Leukocyte Esterase Trace H (Negative) Urine RBC 3 (0-5) /hpf Urine WBC 2 (0-5) /hpf Ur Squamous Epith Cells <1 (0-4) /hpf Urine Mucus Rare H (None) /hpf - Radiology Data Radiology results: report reviewed, image reviewed CT lumbar spine was obtained. Report was reviewed in its entirety. Impression by Dr. Livingston shows new pathologic fracture about 6 vertebra. There are destructive soft tissue masses involving the right and left aspect about 6 vertebra large on the left with additional destructive soft tissue mass involving the upper sacrum extending into the left sacroiliac joint. Ossific metastatic disease needs to be strongly considered. Disposition Clinical Impression: Mass of spine, Pathologic fracture of lumbar vertebra, Radicular pain of left lower extremity Disposition: OTHER INSTITUTION NOT DEFINED Condition: Serious Referrals: Jace Stafford MD [Primary Care Provider] - 1-2 days - Out of Hospital Transfer - Req. Specs Out of Hospital Transfer - Requested Specifics: Other Emergency Center ([facility])
--- NOTE | 2018-05-29 13:49 | CT ---
EXAMINATION TYPE: CT lumbar spine wo con DATE OF EXAM: 05/29/2018 1:31 PM COMPARISON: CT spine November 08, 2013 HISTORY: Patient complains of low back pain with radiation down the left leg. CT DLP: 480.6 mGycm Automated exposure control for dose reduction was used. Unenhanced CT of the lumbar spine was performed. Bone and soft tissue window settings are submitted as well as coronal and sagittal reconstructions. Localizer or carpenter assistant image bowel shows metallic hardware in the bilateral femurs partially imaged. There is redemonstration of 6 lumbar type vertebra. Osseous structures remain demineralized. There is persistent mild height loss involving the inferior L1 endplate. There is new lytic destruction of th e L6 vertebra with soft tissue mass along right aspect and larger soft tissue mass along left aspect extending superiorly and laterally with indistinct fat plane from adjacent left calcified common andi c artery axial image 61. Larger left-sided mass measures roughly 4.5 cm craniocaudal dimension bell l image 19 and up to 6.0 cm AP diameter axial image 55. This extends into the L5 L6 neural foramina a xial image 58. There is extension superiorly to the extraforaminal L4-L5 space axial image 53. There is additional lytic destructive lesion in the left sacrum axial image 65. This extends into the left sacroiliac joint measuring roughly 2.9 cm transversely by 1.9 cm. There is persistent bony protrusion into the anterior spinal canal at inferior L1 level sagittal imag e 23. There is moderate broad disc bulge and posterior spurring effacing anterior thecal sac with mil d facet degenerative changes at L4-L5 level axial image 44 redemonstrated. There is moderate to severe calcified plaque of aorta extending into branch vessels redemonstrated. IMPRESSION: There is new pathologic fracture of the L6 vertebra. There are destructive soft tissue ma sses involving right and left aspect of L6 vertebra larger on the left with additional destructive so ft tissue mass involving the upper sacrum extending into left sacroiliac joint. Ossific metastatic di sease needs to BE strongly considered.
[2018-05-29 14:25] LABS: Appearance,Urine Clear (Clear); Bilirubin,Urine Negative (Negative); Blood,Urine Trace (Negative); Color,Urine Light Yellow; Glucose,Urine (UA) Negative (Negative); Ketones,Urine Negative (Negative); Leukocyte Esterase,Urine Trace (Negative); Mucus,Urine Rare /hpf; Nitrite,Urine Negative (Negative); PH, Urine 5.5 (5.0-8.0); Protein,Urine Negative (Negative); RBC,Urine 3 /hpf (0-5); Specific Gravity,Urine 1.007 (1.001-1.035); Squamous Epithelial Cell,Urine <1 /hpf (0-4); Urobilinogen,Urine <2.0 mg/dL (<2.0); WBC,Urine 2 /hpf (0-5)
[2018-05-29] MEDS ORDERED: ONDANSETRON 4 MG/2 ML VIAL IVP STA (15:16)
[2018-05-29] MEDS ORDERED: MORPHINE SULFATE 2 MG/ML SYRINGE IVP STA (15:16)
[2018-05-29 15:28] VITALS: RESP 16
[2018-05-29 16:01] LABS: WBC 9.9 k/uL (3.8-10.6)
[2018-05-29 16:02] LABS: Basophils % (A) 0 %; Eosinophils # (A) 0.2 k/uL (0-0.7); Eosinophils % (A) 2 %; HCT 35.6 % (34.0-46.0); HGB 11.7 gm/dL (11.4-16.0); Lymphocytes # (A) 0.6 k/uL (1.0-4.8); Lymphocytes % (A) 6 %; MCH 29.9 pg (25.0-35.0); MCHC 32.8 g/dL (31.0-37.0); Mean Platelet Volume 7.8; Monocytes # (A) 0.1 k/uL (0-1.0); Monocytes % (A) 1 %; Neutrophils % (A) 91 %; Platelet Count 183 k/uL (150-450); RBC 3.91 m/uL (3.80-5.40); RDW 13.9 % (11.5-15.5)
[2018-05-29 16:10] LABS: ALT 71 U/L (9-52); AST 96 U/L (14-36); Albumin 3.9 g/dL (3.5-5.0); Alkaline Phosphatase 238 U/L (38-126); Anion Gap 11 mmol/L; Blood Urea Nitrogen 18 mg/dL (7-17); Calcium 9.8 mg/dL (8.4-10.2); Carbon Dioxide 21 mmol/L (22-30); Chloride 107 mmol/L (98-107); Glucose 120 mg/dL (74-99); Sodium 139 mmol/L (137-145); Total Bilirubin 0.7 mg/dL (0.2-1.3); Total Protein 7.3 g/dL (6.3-8.2)
--- NOTE | 2018-05-29 16:22 | XR ---
EXAMINATION TYPE: XR chest 2V DATE OF EXAM: 05/29/2018 COMPARISON: Chest x-ray October 01, 2016 HISTORY: Chest pain. TECHNIQUE: Frontal and lateral views of the chest are obtained. FINDINGS: There is chronic parenchymal change without suspicious focal air space opacity, pleural ef fusion, or pneumothorax seen. New suspicious oval lateral right lung lesion measuring 4.3 x 2.0 cm is noted The cardiac silhouette size is stable and felt upper limits of normal with atherosclerotic and slightly ectatic thoracic aorta. The osseous structures are demineralized. Right breast is surgica lly absent similar to prior. Retrocardiac opacity consistent with large hiatal hernia is felt present . IMPRESSION: Chronic changes without acute pulmonary process. Ovoid peripheral right upper lung nodula r density or mass noted new from prior study. Follow-up contrast-enhanced chest CT is advised to furt her evaluate and characterize.
[2018-05-29 16:42] LABS: Partial Thromboplastin Time 23.1 sec (22.0-30.0); Prothrombin Time 10.7 sec (9.0-12.0)
--- NOTE | 2018-05-29 16:50 | P.HPIM ---
History of Present Illness H&P Date: 05/29/18 Chief Complaint: Low back pain and left lower extremity pain 1 week 83-year-old female who sees Dr. Christopher primary care activity, this patient has not been feeling well for the last 1 week with increase left lower extremity pain as well as low back pain pain has been getting worse up to a point that she decided to come into emergency department for further evaluation, patient has lost about 10 pounds in the last 1 month her appetite has been good as well , patient does have a history of severe degree of osteoporosis and bilateral hip fractures and hip arthroplasty, patient chest x-ray revealed right upper lobe 4 cm lung mass along with the he underwent a computed tomography scan of the spine which revealed L5 compression fracture with a large mass on the left side and groin itching and destruction distracting the body of L5, the CAT scan has been evaluated by myself as well as the emergency department CONTAMINATION CONSULTANT and the staff given the lack of ability of his spine surgery and extent of the disease patient would benefit from further evaluation at a tertiary care center as she will need biopsy and probably reconstruction as per discussion patient now is being [facility], Review of Systems All systems: negative Past Medical History Past Medical History: Cancer, GERD/Reflux, Hypertension, Pneumonia Additional Past Medical History / Comment(s): osteoporosis; glaucoma,heart murmur,polyps, iron deficient anemia, breast cancer 2012 History of Any Multi-Drug Resistant Organisms: None Reported Past Surgical History: Breast Surgery, Hysterectomy Additional Past Surgical History / Comment(s): cataracts, rt masectomy, left hip surgery, right hip surgery Past Anesthesia/Blood Transfusion Reactions: No Reported Reaction Additional Past Anesthesia/Blood Transfusion Reaction / Comment(s): 08-31-2013 Past Psychological History: No Psychological Hx Reported Smoking Status: Former smoker Past Alcohol Use History: Rare Past Drug Use History: None Reported - Past Family History Father Family Medical History: Myocardial Infarction ([place]) Mother Family Medical History: Blood Disorder, Cancer Additional Family Medical History / Comment(s): of leukemia at 50 Medications and Allergies Home Medications Medication Instructions Recorded Confirmed Type Ferrous Sulfate [Feosol] 325 mg PO DAILY 11/08/13 05/29/18 History Losartan [Cozaar] 50 mg PO DAILY 11/08/13 05/29/18 History Omeprazole [PriLOSEC] 20 mg PO BID 11/08/13 05/29/18 History Hydroxychloroquine Sulfate 200 mg PO BID 01/18/15 05/29/18 History [Plaquenil] Latanoprost Ophth [Xalatan 0.005%] 1 drop BOTH EYES HS 01/18/15 05/29/18 History NIFEdipine [Procardia XL] 30 mg PO DAILY 01/18/15 05/29/18 History Ergocalciferol [Vitamin D2 50,000 unit PO PRIDE 10/23/16 05/29/18 History (DRISDOL)] Calcium Carbonate/Vitamin D3 1 tab PO DAILY 05/29/18 05/29/18 History [Calcium 500-Vit D3 200 Tablet] Metoprolol Succinate (ER) [Toprol 50 mg PO DAILY 05/29/18 05/29/18 History Xl] Teriparatide [Forteo] 20 mcg SQ DAILY 05/29/18 05/29/18 History predniSONE 10 mg PO DAILY 05/29/18 05/29/18 History Allergies Allergy/AdvReac Type Severity Reaction Status Date / Time codeine Allergy Nausea & Verified 05/29/18 12:29 Vomiting Physical Exam Vitals: Vital Signs Temp Pulse Resp BP Pulse Ox 05/29/18 15:27 98.0 F 80 16 138/71 98 05/29/18 11:53 97.6 F 88 20 133/65 97 Intake and Output 05/29/18 05/29/18 05/29/18 06:59 14:59 22:59 Other: Weight 49.895 kg - Constitutional General appearance: disheveled, no acute distress, thin - EENT Eyes: EOMI, PERRLA ENT: hearing grossly normal, normal oropharynx Ears: bilateral: normal - Neck Carotids: bilateral: upstroke normal, bruit absent Thyroid: bilateral: normal size - Respiratory Respiratory: bilateral: CTA - Cardiovascular Rhythm: regular Heart sounds: normal: S1, S2 - Gastrointestinal General gastrointestinal: decreased bowel sounds, hyperactive bowel sounds, soft - Neurologic Neurologic: CNII-XII intact, focal deficits - Musculoskeletal Pain shooting in nature into the back of the thigh limiting further evaluation on the left leg otherwise no focal neurological deficit is present slight hyperreflexia on the left side Musculoskeletal: generalized weakness - Psychiatric Psychiatric: A&O x's 3, appropriate affect, intact judgment & insight Results CBC & Chem 7: 05/29/18 15:51 05/29/18 15:51 Labs: Abnormal Lab Results - Last 24 Hours (Table) 05/29/18 05/29/18 05/29/18 Range/Units 13:58 15:51 15:51 Neutrophils # 9.0 H (1.3-7.7) k/uL Lymphocytes # 0.6 L (1.0-4.8) k/uL Carbon Dioxide 21 L (22-30) mmol/L BUN 18 H (7-17) mg/dL Glucose 120 H (74-99) mg/dL AST 96 H (14-36) U/L ALT 71 H (9-52) U/L Alkaline Phosphatase 238 H (38-126) U/L Urine Blood Trace H (Negative) Ur Leukocyte Esterase Trace H (Negative) Urine Mucus Rare H (None) /hpf Assessment and Plan Assessment: Large paraspinal mass with L5 vertebral body destruction likely metastatic disease from likely primary lung cancer Left-sided nerve root compression of lower extremity New right upper lobe lung mass likely lung neoplasm COPD emphysema Osteoporosis Hypertension hypertensive cardiovascular disease Plan: As discussed with emergency room physician and staff patient is at high risk of compression damage of lower extremity and would require spine surgery and further evaluation of right upper lobe lung mass patient would benefit placement and transferred to a tertiary care center Time with Patient: Greater than 30
[2018-05-29 16:56] VITALS: BP 131/79; PULSE 79; TEMP 97.9
== END 2018-05-29 16:59 | disposition short-term general hospital (02) ==
LOC: EC 11:49
DX: M84.48XA Pathological fracture, other site, initial encounter for fracture (principal); M54.16 Radiculopathy, lumbar region; M48.8X7 Other specified spondylopathies, lumbosacral region; I11.9 Hypertensive heart disease without heart failure; M81.0 Age-related osteoporosis without current pathological fracture; H40.9 Unspecified glaucoma; D50.9 Iron deficiency anemia, unspecified; Z87.891 Personal history of nicotine dependence; Z88.5 Allergy status to narcotic agent; Z79.52 Long term (current) use of systemic steroids; Z79.899 Other long term (current) drug therapy; Z85.3 Personal history of malignant neoplasm of breast; Z90.11 Acquired absence of right breast and nipple; Z87.81 Personal history of (healed) traumatic fracture; Z98.890 Other specified postprocedural states
CPT/HCPCS: 36415; 80053; 85025; 85610; 85730; 81001; 71046; 72131; 99285; 96374; 96375; J2405; J2270